=== PATIENT | male | born 1945 | race Caucasian/White ===

== ENCOUNTER → 2017-03-01 | Outpatient (CLI) | payer MEDICARE, OTHER | END | disposition home or self-care (01) | LOC: CVU 07:19 | PROVIDERS: ATTEND Nurse Practitioner Family | DX: I70.0 Atherosclerosis of aorta (principal); I70.208 Unspecified atherosclerosis of native arteries of extremities, other extremity; I10 Essential (primary) hypertension; Z87.891 Personal history of nicotine dependence | CPT/HCPCS: 93978 ==

== ENCOUNTER → 2017-03-11 | Outpatient (CLI) | payer MEDICARE, OTHER | END | disposition home or self-care (01) | LOC: CFH 08:13 | PROVIDERS: ATTEND Nurse Practitioner Family | DX: Z12.2 Encounter for screening for malignant neoplasm of respiratory organs (principal); I25.10 Atherosclerotic heart disease of native coronary artery without angina pectoris; R91.1 Solitary pulmonary nodule; J84.10 Pulmonary fibrosis, unspecified; Z87.891 Personal history of nicotine dependence | CPT/HCPCS: G0297 ==

== ENCOUNTER → 2018-04-25 | Outpatient (CLI) | payer MEDICARE, OTHER | LOC: CFH 10:26 | PROVIDERS: ATTEND Family Medicine | DX: Z87.891 Personal history of nicotine dependence (principal) | CPT/HCPCS: G0297 ==

== ENCOUNTER → 2019-04-24 | Outpatient (CLI) | payer MEDICARE, OTHER | END | disposition home or self-care (01) | LOC: CFH 10:01 | PROVIDERS: ATTEND Family Medicine | DX: J84.10 Pulmonary fibrosis, unspecified (principal); R91.1 Solitary pulmonary nodule; Z87.891 Personal history of nicotine dependence | CPT/HCPCS: G0297 ==

== ENCOUNTER 2020-01-14 10:04 | Outpatient (CLI) | payer MEDICARE ==
[2020-01-14] MEDS ORDERED: ATOR20TA37 PO (10:44)
[2020-01-14] MEDS ORDERED: ASPI-650 PO (10:44)
[2020-01-14] MEDS ORDERED: METO50TA82 PO (10:44)
[2020-01-14] MEDS ORDERED: WARF7.5T46 PO (10:44)
[2020-01-14] MEDS ORDERED: WARF-36 PO (10:44)
[2020-01-14 11:24] LABS: BASOPHILS # (AUTO) 0.04 x10^3/uL (0-0.1); BASOPHILS % (AUTO) 1 % (0-1); EOSINOPHILS # (AUTO) 0.48 x10^3/uL (0-0.4); EOSINOPHILS % (AUTO) 7 % (1-7); LYMPHOCYTES # (AUTO) 2.32 x10^3/uL (1-3.4); LYMPHOCYTES % (AUTO) 34 % (22-44); MD NO; MEAN CORPUSCULAR HEMOGLOBIN 32.6 pg (27.5-34.5); MEAN CORPUSCULAR HGB CONC 34.1 g/dL (33.2-36.2); MEAN CORPUSCULAR VOLUME 95.6 fL (81-97); MEAN PLATELET VOLUME 7.4 fL (7.4-10.4); MONOCYTES # (AUTO) 0.64 x10^3/uL (0.2-0.8); MONOCYTES % (AUTO) 10 % (2-9); NEUTROPHILS # (AUTO) 3.26 x10^3/uL (1.8-6.8); NEUTROPHILS % (AUTO) 48 % (42-75); PLATELET COUNT 201 x10^3/uL (130-400); RED BLOOD COUNT 4.23 x10^6/uL (4.38-5.82); RED CELL DISTRIBUTION WIDTH 13.2 % (9.4-14.8)
[2020-01-14 12:04] LABS: INTERNATIONAL NORMALIZED RATIO 2.06 (0.93-1.1)
== END 2020-01-14 23:59 | disposition home or self-care (01) ==
LOC: STAR 10:04
PROVIDERS: ATTEND Orthopaedic Surgery
DX: Z01.818 Encounter for other preprocedural examination (principal); S83.241A Other tear of medial meniscus, current injury, right knee, initial encounter; I45.10 Unspecified right bundle-branch block; X58.XXXA Exposure to other specified factors, initial encounter; Y93.89 Activity, other specified; Y92.89 Other specified places as the place of occurrence of the external cause; Y99.8 Other external cause status
CPT/HCPCS: 36415; 85025; 85610; 85730; 93005

== ENCOUNTER 2020-01-21 12:31 | Day surgery (SDC) | payer MEDICARE ==
[~2020-01-21] VITALS: Ht 175.3 cm; Wt 66.6 kg
[~2020-01-21 12:31] MED LIST: ASPI-650 PO; ATOR20TA37 PO; BUPIVACAINE/PF 0.5% ONE; EPINEPHRINE 1 MG/ML, 1ML ONE; LIDOCAINE 1%, 20ML ONE; METO50TA82 PO; WARF-36 PO; WARF7.5T46 PO
[2020-01-21] MEDS ORDERED: LACTATED RINGERS 1,000 ML IV SCH (13:03)
[2020-01-21 13:56] LABS: INTERNATIONAL NORMALIZED RATIO 1.02 (0.93-1.1); PROTHROMBIN TIME 10.8 Seconds (9.6-11.5)
[2020-01-21] MEDS ORDERED: MIDAZOLAM 1 MG/ML, 2ML ONE (15:18)
[2020-01-21] MEDS ORDERED: FENTANYL PF 250 MCG/5ML ONE (15:18)
[2020-01-21] MEDS ORDERED: HYDROmorphone 2 MG/ML, 1ML IVPush PRN (16:00)
[2020-01-21] MEDS ORDERED: PROMETHAZINE 25 MG/ML, 1ML IV PRN (16:00)
[2020-01-21] MEDS ORDERED: ACETAMINOPHEN 325 MG TABLET PO PRN (16:00)
[2020-01-21] MEDS ORDERED: hydrALAzine 20 MG/ML, 1ML IV PRN (16:00)
[2020-01-21] MEDS ORDERED: FENTANYL PF 100 MCG/2ML IV PRN (16:00)
[2020-01-21] MEDS ORDERED: MEPERIDINE/PF 25MG/ML,1ML IVPush PRN (16:00)
[2020-01-21] MEDS ORDERED: ONDANSETRON 2MG/ML, 2ML ONE (16:09)
[2020-01-21] MEDS ORDERED: PHENYLEPHRINE 10 MG/ML ONE (16:09)
[2020-01-21] MEDS ORDERED: PROPOFOL 10 MG/ML, 20ML ONE (16:09)
[2020-01-21] MEDS ORDERED: CEFAZOLIN 1,000 MG ONE (16:09)
[2020-01-21] MEDS ORDERED: DEXAMETHASONE 4 MG/ML, 1ML ONE (16:09)
[2020-01-21] MEDS: OXYcodone 5 MG/5 ML ORAL.SOL UDC PO PRN ×2 (16:55→17:12)
[2020-01-21] MEDS ORDERED: OXYcodone 5 MG/5 ML ORAL.SOL UDC ONE ×2 (17:01→17:10)
[2020-01-21] MEDS ORDERED: MEPERIDINE/PF 25MG/ML,1ML ONE (17:11)
[2020-01-21] MEDS ORDERED: ATORVASTATIN 20 MG TABLET PO SCH (21:00)
[2020-01-22] MEDS ORDERED: METOPROLOL TARTRATE 50 MG TAB PO SCH (09:00)
[2020-01-22] MEDS ORDERED: ASPIRIN 325 MG TABLET EC PO SCH (09:00)
[2020-01-22] MEDS ORDERED: WARFARIN 5 MG TABLET PO-COUM SCH (18:00)
[2020-01-27] MEDS ORDERED: WARFARIN 7.5 MG TABLET PO-COUM SCH (18:00)
== END 2020-01-21 18:35 | disposition home or self-care (01) ==
LOC: OUT 12:31
PROVIDERS: ATTEND Orthopaedic Surgery
DX: S83.271A Complex tear of lateral meniscus, current injury, right knee, initial encounter (principal); S83.231A Complex tear of medial meniscus, current injury, right knee, initial encounter; M22.41 Chondromalacia patellae, right knee; M17.11 Unilateral primary osteoarthritis, right knee; E78.5 Hyperlipidemia, unspecified; I10 Essential (primary) hypertension; Z79.82 Long term (current) use of aspirin; Z79.01 Long term (current) use of anticoagulants; Z79.899 Other long term (current) drug therapy; Z87.891 Personal history of nicotine dependence; Z85.820 Personal history of malignant melanoma of skin; Z82.3 Family history of stroke; X58.XXXA Exposure to other specified factors, initial encounter; Y93.89 Activity, other specified; Y92.89 Other specified places as the place of occurrence of the external cause; Y99.8 Other external cause status
CPT/HCPCS: 29880; 36415; 85610; 85730; J0171; J0690; J1100; J2175; J2370; J2405; J2704; J7120

== ENCOUNTER 2020-05-05 08:22 | Outpatient (CLI) | payer MEDICARE, OTHER ==
[~2020-05-05 08:22] MED LIST changes: -BUPIVACAINE/PF 0.5% ONE; -EPINEPHRINE 1 MG/ML, 1ML ONE; -LIDOCAINE 1%, 20ML ONE
== END 2020-05-05 23:59 | disposition home or self-care (01) ==
LOC: CFH 08:22
PROVIDERS: ATTEND Family Medicine
DX: Z12.2 Encounter for screening for malignant neoplasm of respiratory organs (principal); J84.10 Pulmonary fibrosis, unspecified; R91.8 Other nonspecific abnormal finding of lung field; R91.1 Solitary pulmonary nodule; J94.8 Other specified pleural conditions; J92.9 Pleural plaque without asbestos; K57.30 Diverticulosis of large intestine without perforation or abscess without bleeding; Z87.891 Personal history of nicotine dependence
CPT/HCPCS: G0297

== ENCOUNTER 2020-08-23 04:56 | Emergency (ER) | payer MEDICARE, OTHER ==
[~2020-08-23] VITALS: Ht 175.3 cm; Wt 67.0 kg
--- NOTE | 2020-08-23 05:13 | NUR ---
PT CONNECTED TO CARDIAC, BP AND O2 MONITORS. TALKING IN FULL SENTENCES TO ERP. PINEDA.
--- NOTE | 2020-08-23 05:26 | NUR ---
PT CAME IN WITH RIGHT SIDED "CHEST DISCOMFORT, NOT PAIN" PER PT. PT STATES DISCOMFORT HAS BEEN HAPPENING SINCE AND WORSTENS WITH DEEP BREATHS. PT STATES 2/10 PAIN AT THIS TIME, PT TALKING IN FULL SENTENCES AND LAUGHING. PT PLACED ON ALL MONITORS, ERP EVALUATED PT, PT ABLE TO AMBULATE WITHOUT ISSUES TO XRAY
[2020-08-23] MEDS ORDERED: CYCLOBENZAPRINE 10 MG TABLET PO ONE (05:30)
[2020-08-23] MEDS ORDERED: CYCLOBENZAPRINE 10 MG TABLET ONE (05:37)
[2020-08-23 06:19] LABS: BASOPHILS # (AUTO) 0.05 x10^3/uL (0-0.1); BASOPHILS % (AUTO) 1 % (0-1); EOSINOPHILS # (AUTO) 0.49 x10^3/uL (0-0.4); EOSINOPHILS % (AUTO) 8 % (1-7); LYMPHOCYTES # (AUTO) 2.02 x10^3/uL (1-3.4); LYMPHOCYTES % (AUTO) 33 % (22-44); MD NO; MEAN CORPUSCULAR HEMOGLOBIN 32.1 pg (27.5-34.5); MEAN CORPUSCULAR HGB CONC 33.3 g/dL (33.2-36.2); MEAN CORPUSCULAR VOLUME 96.4 fL (81-97); MEAN PLATELET VOLUME 7.3 fL (7.4-10.4); MONOCYTES % (AUTO) 10 % (2-9); NEUTROPHILS % (AUTO) 49 % (42-75); PLATELET COUNT 206 x10^3/uL (130-400); RED BLOOD COUNT 3.97 x10^6/uL (4.38-5.82)
[2020-08-23 06:30] LABS: ALBUMIN 3.4 g/dL (3.4-5.0); ANION GAP 5 mmol/L (5-15); CALCIUM 8.4 mg/dL (8.5-10.1); CHLORIDE 111 mmol/L (98-107)
[2020-08-23 06:38] LABS: ALANINE AMINOTRANSFERASE 41 U/L (12-78); BILIRUBIN,TOTAL 1.4 mg/dL (0.2-1.0); CREATININE 0.82 mg/dL (0.7-1.3); TOTAL PROTEIN 6.5 g/dL (6.4-8.2); TROPONIN I < 0.015 ng/mL (0.000-0.045)
[2020-08-23 06:41] LABS: ALKALINE PHOSPHATASE 103 U/L (45-117)
--- NOTE | 2020-08-23 06:48 | NUR ---
PT WAS AMBULATED TO RESTROOM, AND GIVEN WARM BLANKET WHEN BACK IN ROOM. NO NEEDS AT THIS TIME
[2020-08-23 06:58] LABS: D-DIMER 0.22 ug/mlFEU (0.00-0.52); INTERNATIONAL NORMALIZED RATIO 2.63 (0.93-1.1); PROTHROMBIN TIME 27.4 Seconds (9.6-11.5)
--- NOTE | 2020-08-23 07:07 | NUR ---
[facility] BEDSIDE REPORT RECEIVED FROM SHANT MORIN. ASSUMING CARE OF PATIENT.
[2020-08-23 07:32] VITALS: BP 137/68
--- NOTE | 2020-08-23 07:32 | NUR ---
VS UPDATED AND WNL. PT UP FOR RECHECK.
--- NOTE | 2020-08-23 08:03 | NUR ---
Patient given discharge instructions and they have confirmed that they understand the instructions. Patient ambulatory with steady gait.
== END 2020-08-23 08:04 | disposition home or self-care (01) ==
LOC: ED 07:01
DX: R07.89 Other chest pain (principal); I45.10 Unspecified right bundle-branch block; R00.1 Bradycardia, unspecified; I10 Essential (primary) hypertension; E78.5 Hyperlipidemia, unspecified; I25.2 Old myocardial infarction; I48.91 Unspecified atrial fibrillation; Z90.89 Acquired absence of other organs
CPT/HCPCS: 36415; 71046; 80053; 83735; 84484; 85025; 85379; 85610; 93005; 99285